=== PATIENT | female | born 1990 | race African-American/Black ===

== ENCOUNTER 2019-10-02 09:29 | Emergency (ER) | payer BC ==
--- NOTE | 2019-10-02 10:53 | ER Document Report ---
ED General - General Chief Complaint: Shortness Of Breath Stated Complaint: SHORT OF BREATH Time Seen by Provider: 10/02/19 10:11 Mode of Arrival: Ambulatory Information source: Patient Notes: Otherwise healthy 28-year-old female presents the emergency department with complaints of shortness of breath and chest pain. Patient reports her mother was diagnosed with COVID-19 2 days ago. Patient herself denies any cough, congestion, fever, chills, nausea, vomiting or diarrhea. She reports the shortness of breath is worse with movement. She has never had a pulmonary embolism in her past however she is on oral contraceptives. - Related Data Allergies/Adverse Reactions: lisinopril Allergy (Verified 10/02/19 10:10) Past Medical History - General Information source: Patient - Social History Smoking Status: Never Smoker Frequency of alcohol use: None Drug Abuse: None Family History: Reviewed & Not Pertinent Patient has homicidal ideation: No - Past Medical History Cardiac Medical History: Reports: Hx Hypertension Pulmonary Medical History: Reports: Hx Asthma Endocrine Medical History: Reports: Hx Diabetes Mellitus Type 2 Review of Systems - Review of Systems Constitutional: No symptoms reported EENT: No symptoms reported Cardiovascular: Chest pain, Dyspnea Respiratory: No symptoms reported Gastrointestinal: No symptoms reported Genitourinary: No symptoms reported Female Genitourinary: No symptoms reported Musculoskeletal: No symptoms reported Skin: No symptoms reported Hematologic/Lymphatic: No symptoms reported Neurological/Psychological: No symptoms reported Physical Exam - Vital signs Vitals: Temp Pulse Resp BP 99.4 F 108 H 18 146/95 H 10/02/19 09:56 10/02/19 09:56 10/02/19 09:56 10/02/19 09:56 - Notes Notes: PHYSICAL EXAMINATION: GENERAL: Well-appearing, well-nourished and in no acute distress. HEAD: Atraumatic, normocephalic. EYES: Pupils equal round and reactive to light, extraocular movements intact, conjunctiva are normal. ENT: Nares patent, oropharynx clear without exudates. Moist mucous membranes. NECK: Normal range of motion, supple without lymphadenopathy LUNGS: Breath sounds clear to auscultation bilaterally and equal. No wheezes rales or rhonchi. HEART: Regular rate and rhythm without murmurs ABDOMEN: Soft, nontender, nondistended abdomen. No guarding, no rebound. No masses appreciated. Female : deferred Musculoskeletal: Normal range of motion, no pitting or edema. No cyanosis. NEUROLOGICAL: Cranial nerves grossly intact. Normal speech, normal gait. Normal sensory, motor exams PSYCH: Normal mood, normal affect. SKIN: Warm, Dry, normal turgor, no rashes or lesions noted. Course - Re-evaluation Re-evalutation: Patient is tachycardic on arrival with a heart rate of 108. Although I think COVID-19 is the most likely culprit of this I cannot rule out pulmonary embolism as patient is on oral contraceptives, is tachycardic, short of breath and having intermittent sharp chest pains. EKG was obtained, shows a sinus tachycardia, normal axis, normal intervals, no ST segment elevations or depressions. Labs were obtained, d-dimer was elevated. Patient went for a CTA of the chest, there is no pulmonary embolism however there is bilateral groundglass opacities siu ggestive of COVID-19. She was swabbed for COVID-19, she will self quarantine at home. Repeat vitals are reassuring. ED return precautions discussed, patient verbalized understanding and agreement with same. - Vital Signs Vital signs: Temp Pulse Resp BP Pulse Ox 99.6 F 99 16 152/90 H 99 10/02/19 14:21 10/02/19 14:21 10/02/19 14:21 10/02/19 14:21 10/02/19 14:21 - Laboratory Result Diagrams: 10/02/19 11:12 10/02/19 11:12 Laboratory results interpreted by me: 10/02/19 10/02/19 10/02/19 11:12 11:12 11:12 MCH 26.5 L D-Dimer 0.80 H Sodium 136.3 L Glucose 152 H Urine Ketones 10/02/19 11:12 MCH D-Dimer Sodium Glucose Urine Ketones 20 H - EKG Interpretation by Nh EKG shows normal: Sinus rhythm Rate: Tachycardia Rhythm: NSR When compared to previous EKG there are: Previous EKG unavailable - no ST segment elevations or depressions to suggest ischemia Discharge - Discharge Clinical Impression: Suspected COVID-19 virus infection Condition: Stable Disposition: HOME, SELF-CARE Additional Instructions: The CAT scan of your chest showed no blood clots but did show some opacities that are consistent with COVID-19. I think it is likely that you do have an active COVID-19 infection. Your test is pending and will not be resulted for another 2 to 3 days. Please self quarantine until you receive these test results. Drink plenty of fluids. Return to the emergency department if you develop worsening shortness of breath to the point where you are unable to walk across the room without becoming short of breath. Tylenol or ibuprofen for any fever. Forms: Return to Work
[2019-10-02 11:30] LABS: ABSOLUTE LYMPHOCYTES (AUTO) 0.6 10^3/uL (0.5-4.7); ABSOLUTE MONOCYTES (AUTO) 0.4 10^3/uL (0.1-1.4); ABSOLUTE NEUT (AUTO) 3.2 10^3/uL (1.7-8.2); BASOPHILS % (AUTO) 0.2 % (0-2); EOSINOPHILS % (AUTO) 0.1 % (0-6); HEMATOCRIT 41.3 % (36.0-47.0); HEMOGLOBIN 13.7 g/dL (12.0-15.5); LYMPHOCYTES % (AUTO) 13.5 % (13-45); MEAN CORPUSCULAR HEMOGLOBIN 26.5 pg (27.0-33.4); MEAN CORPUSCULAR HGB CONC 33.2 g/dL (32.0-36.0); MEAN CORPUSCULAR VOLUME 80 fl (80-97); MONOCYTES % (AUTO) 9.5 % (3-13); PLATELET COUNT 217 10^3/uL (150-450); RED BLOOD COUNT 5.18 10^6/uL (3.72-5.28); RED CELL DISTRIBUTION WIDTH 13.9 % (11.5-14.0); SEGMENTED NEUTROPHILS % (AUTO) 76.7 % (42-78); TOTAL CELLS COUNTED % (AUTO) 100 %; WHITE BLOOD COUNT 4.2 10^3/uL (4.0-10.5)
[2019-10-02 11:32] LABS: APPEARANCE,URINE SLIGHTLY-CLOUDY; BILIRUBIN,URINE NEGATIVE (NEGATIVE); COLOR,URINE YELLOW; GLUCOSE, URINE NEGATIVE (NEGATIVE); KETONES,URINE 20 mg/dL (NEGATIVE); PROTEIN,URINE NEGATIVE (NEGATIVE); URINE SPECIFIC GRAVITY 1.011; UROBILINOGEN,URINE NEGATIVE mg/dL (<2.0)
[2019-10-02 12:01] LABS: ALBUMIN 4.2 g/dL (3.5-5.0); ALKALINE PHOSPHATASE 92 U/L (38-126); ANION GAP 5 (5-19); ASPARTATE AMINO TRANSFERASE 23 U/L (14-36); BILIRUBIN,TOTAL 0.4 mg/dL (0.2-1.3); BLOOD UREA NITROGEN 9 mg/dL (7-20); CALCIUM 8.8 mg/dL (8.4-10.2); CARBON DIOXIDE 29 mmol/L (22-30); CHLORIDE 102 mmol/L (98-107); GLUCOSE 152 mg/dL (75-110); TOTAL PROTEIN 7.7 g/dL (6.3-8.2)
--- NOTE | 2019-10-02 13:53 | RADIOLOGY REPORT (SQ) ---
EXAM DESCRIPTION: CTA CHEST IMAGES COMPLETED DATE/TIME: 10/02/2019 1:39 pm REASON FOR STUDY: sob x5 days, eval for PE COMPARISON: None. TECHNIQUE: CT scan of the chest performed using helical scanning technique with dynamic intravenous contrast injection. Images reviewed with lung, soft tissue and bone windows. Reconstructed coronal and sagittal MPR images reviewed. Additional 3 dimensional post-processing performed to develop Maximal Intensity Projection images (TX P). All images stored on PACS. All CT scanners at this facility use dose modulation, iterative reconstruction, and/or weight based d osing when appropriate to reduce radiation dose to as low as reasonably achievable (ALARA). [facility]: Dose Right [facility]: CareDose [facility]: Dose Right [facility]: Teradose 4D [facility]: [employer] CONTRAST TYPE AND DOSE: Contrast/concentration: Isovue 350.00 mmol/ml; Total Contrast Delivered: 86. 0 ml; Total Saline Delivered: 75.0 ml Contrast bolus optimized for the pulmonary arteries. Not diagnostic for the aorta. RENAL FUNCTION: None required. The patient is less than 50 years old. RADIATION DOSE: CT Rad equipment meets quality standard of care and radiation dose reduction techniq ues were employed. CTDIvol: 9.9 - 31.0 mGy. DLP: 1063 mGy-cm. LIMITATIONS: None. FINDINGS: LUNGS AND PLEURA: The trachea and main bronchi are patent. There are bilateral multifocal / multilobar parenchymal opacities that are nonspecific and have no discrete distribution predilecti on. There is no pleural effusion or pneumothorax. AORTA AND GREAT VESSELS: There is a variant 2 vessel arch with a common origin of brachiocephalic and left common carotid arteries. There is no thoracic aortic dissection. HEART: Borderline cardiomegaly. There is no pericardial effusion. PULMONARY ARTERIES: There are no filling defects within the main, right and left pulmonary arteries. Evaluation of the segmental and subsegmental branches of the pulmonary arteries is limited due to siu boptimal contrast opacification of the vessels and respiratory motion. HILAR AND MEDIASTINAL STRUCTURES: No adenopathy or mass. HARDWARE: None in the chest. UPPER ABDOMEN: No acute findings. THYROID AND OTHER SOFT TISSUES: No mass or adenopathy. BONES: No acute findings. 3D MIPS: Confirm above findings. OTHER: No other finding. IMPRESSION: 1. Bilateral multi lobar parenchymal opacities that are nonspecific and could represent a multifocal infection (including COVID-19). 2. No discrete pulmonary emboli. COMMENT: Quality ID # [id number]: Final reports with documentation of one or more dose reduction techniques (e.g., Automated exposure control, adjustment of the mA and/or kV according to patient size, use of iterative reconstruction technique) TECHNICAL DOCUMENTATION: JOB ID: [id number] 2010 [employer]- All Rights Reserved Reading location - IP/workstation name: [email or web address]
[2019-10-02 14:23] VITALS: BP 152/90
--- NOTE | 2019-10-02 15:05 | EKG REPORT ---
SEVERITY:- OTHERWISE NORMAL ECG - SINUS TACHYCARDIA : Confirmed by: Vik Apple MD 02-Oct-2019 15:04:36
== END 2019-10-02 14:21 | disposition home or self-care (01) ==
LOC: ER 09:29
DX: U07.1 COVID-19 (principal); R06.02 Shortness of breath; R07.9 Chest pain, unspecified; Z79.899 Other long term (current) drug therapy; I10 Essential (primary) hypertension; E11.9 Type 2 diabetes mellitus without complications; J45.909 Unspecified asthma, uncomplicated; R06.00 Dyspnea, unspecified
CPT/HCPCS: 93005; 99285; 36415; 85025; 87635; 80053; 81001; 85379; 71275; 93010; C9803